=== PATIENT | female | born 1995 | race Caucasian/White ===

== ENCOUNTER 2016-04-05 00:15 | Emergency (ER) | payer OTHER ==
[~2016-04-05] VITALS: Ht 165.1 cm; Wt 87.7 kg
[2016-04-05 00:33] VITALS: BP 110/88; TEMP 99.6
[2016-04-05 01:17] LABS: BASO % 0.2 % (0.0-2.0); EOS % 0.3 % (0-4.0); GRAN # 9.9 (1.4-6.5); GRAN % 83.5 % (42.2-75.2); HEMATOCRIT 46.1 % (37.0-47.0); HEMOGLOBIN 16.5 g/dl (12.5-16.0); LYMPH # 1.1 (1.2-3.4); LYMPH % 9.6 % (20.0-51.0); MEAN CELL VOLUME 87 fl (80.0-100.0); MEAN CORPUSCULAR HEMOGLOBIN 31 pg (27.0-31.0); MEAN CORPUSCULAR HGB CONC 36 g/dl (33.0-37.0); MEAN PLATELET VOLUME 11.1 fl (7.4-10.4); MONO # 0.7 (0.1-0.6); MONO % 6.1 % (1.7-9.3); PLATELET COUNT 250 K/mm3 (130-400); RED BLOOD COUNT 5.33 M/mm3 (4.10-5.30); REDCELL DISTRIBUTION WIDTH-CV 12.4 % (11.5-14.5); WHITE BLOOD COUNT 11.8 K/mm3 (4.8-10.8)
[2016-04-05 01:22] LABS: INFLUENZA B NEGATIVE
[2016-04-05 01:26] LABS: ADJUSTED CALCIUM 9.7 mg/dL (8.4-10.2); ALBUMIN 4.5 gm/dL (3.5-5.0); BILIRUBIN,TOTAL 1.5 mg/dL (0.0-1.0); CALCIUM 10.1 mg/dL (8.4-10.2); CREATININE, serum 0.99 mg/dL (0.52-1.25); TOTAL PROTEIN 8.4 gm/dL (6.4-8.2)
[2016-04-05 02:30] VITALS: PULSE 90
== END 2016-04-05 02:35 | disposition home or self-care (01) ==
LOC: COL.ER 00:15
PROVIDERS: Family Medicine
DX: K52.9 Noninfective gastroenteritis and colitis, unspecified (principal)
CPT/HCPCS: J2550; J7030